=== PATIENT | female | born 1930 | race Caucasian/White ===

== ENCOUNTER 2017-05-18 10:16 | Outpatient (CLI) | payer MEDICARE ==
--- NOTE | 2017-05-18 16:18 | MRI ---
MRI BRAIN WITHOUT CONTRAST: Technique: Multiplanar, multisequential imaging of brain obtained. History: Memory loss, confusion. FINDINGS: Mild cortical volume loss. Moderate chronic ischemic white matter changes seen in both cerebral hemis pheres. No evidence of restricted diffusion. No evidence of mass or edema. The intracranial internal carotid arteries and possible cerebral arteries show flow voids. Basilar artery is patent. Paranasal sinuses appear clear. IMPRESSION: 1. Mild to severe chronic ischemic white matter change and mild to moderate cortical atrophy. No evid ence of acute process. POS: [facility]
== END 2017-05-18 10:17 | disposition home or self-care (01) ==
LOC: SCSMRI 10:16
PROVIDERS: ATTEND Family Medicine
DX: R41.3 Other amnesia (principal); I67.82 Cerebral ischemia; G31.9 Degenerative disease of nervous system, unspecified
CPT/HCPCS: 70551

== ENCOUNTER 2017-08-11 09:46 | Outpatient (CLI) | payer MEDICARE, OTHER ==
--- NOTE | 2017-08-13 10:35 | EEG ---
Referring Physician: DR AMADOR BERTRAND EEG # [id number] TEST TYPE: ROUTINE OUTPATIENT PROCEDURE: Outpatient electroencephalogram NAME OF PATIENT: Ailyn Wan DATE EEG DONE: 08/11/2017. INDICATION: Memory impairment, falls. EEG CLASSIFICATION: Normal awake and drowsy. REPORT: This is a 22-channel digital EEG recording utilizing 10-20 international electrode placement system on a patient who presents with memory impairment and frequent falls. During wakefulness, the background activity consists predominantly of low to moderate amplitude 8 Hz rhythm. It is symmetric and reactive. This activity is penetrated occasionally by low amplitude fast beta activity and also with myogenic activity representing frontalis and temporalis muscles bilaterally. DROWSINESS AND SLEEP: Subject is able to attain periods of drowsiness with diffuse theta activity. There is no clear sleep recorded during this EEG. There is no consistent asymmetry or paroxysmal activity noted. INDUCTION: HYPERVENTILATION: Not performed. PHOTIC STIMULATION: No photic drive seen. EK per minute. IMPRESSION: This EEG is considered normal awake and drowsy EEG. There is no clear epileptiform activity or focal abnormality noted. Clinical correlation recommended. Finger Waver: PHIL Roadway Engineer: [email or web address]
== END 2017-08-11 09:47 | disposition home or self-care (01) ==
LOC: EEG 09:46
PROVIDERS: ATTEND Student in an Organized Health Care Education/Training Program
DX: R41.3 Other amnesia (principal)
CPT/HCPCS: 95816

== ENCOUNTER 2017-08-18 02:06 | Emergency (ER) | payer MEDICARE, OTHER ==
[2017-08-18] MEDS ORDERED: hydrALAZINE 20 MG/ML VIAL ONE (02:45)
[2017-08-18 03:02] LABS: #Basophils 0.1 thou/uL (0.0-0.2); #Eosinphils 0.1 thou/uL (0.0-0.7); #Monocytes 0.3 thou/uL (0.11-0.59); #Neutrophils 2.6 thou/uL (1.40-6.50); %Basophils 1.1 % (0.0-1.0); %Eosinophils 2.2 % (0.0-10.0); %Monocytes 6.5 % (0.0-10.0); %Neutrophils 51.2 % (42.0-75.0); Hemoglobin 14.7 g/dL (12.0-16.0); Mean Corpuscular HGB CONC 33.1 g/dL (32.0-36.0); Mean Corpuscular Hemoglobin 30.4 pg (27.0-31.0); Mean Corpuscular Volume 91.9 fl (81.0-99.0); Mean Platelet Volume 8.7 fL (7.4-10.4); Platelet Count 123 thou/uL (130-400); Red Blood Cell (RBC) Count 4.84 mill/uL (4.20-5.40); White Blood Cell (WBC) Count 5.1 thou/uL (4.8-10.8)
[2017-08-18 03:21] LABS: ALT (SGPT) 26 U/L (8-55); AST (SGOT) 35 U/L (5-34); Albumin 4.8 g/dL (3.4-4.8); Alkaline Phosphatase 82 U/L (40-150); Anion Gap 14 mmol/L (10-20); BUN (Urea Nitrogen) 31 mg/dL (9.8-20.1); Bilirubin, Total 0.6 mg/dL (0.2-1.2); CK (CPK) 206 U/L (29-168); Calc. Creatinine Clearance 0 mL/min (70-130); Carbon Dioxide 28 mmol/L (23-31); Chloride 102 mmol/L (98-107); Estimated GFR-MDRD 38; Globulin 3.5 g/dL (2.4-3.5); Glucose 90 mg/dL (83-110); Potassium 3.4 mmol/L (3.5-5.1); Protein, Total 8.3 g/dL (6.0-8.3); Sodium 141 mmol/L (136-145)
[2017-08-18 03:25] LABS: Calcium 12.2 mg/dL (7.8-10.44)
[2017-08-18 03:26] LABS: Troponin I 0.015 ng/mL (< 0.028)
[2017-08-18 03:31] LABS: CKMB 8.6 ng/mL (0-6.6)
[2017-08-18] MEDS ORDERED: Labetalol HCl 100 MG/20 ML VIAL ONE (04:03)
--- NOTE | 2017-08-18 07:50 | RAD ---
PORTABLE CHEST 1 VIEW: DATE: 08/18/17. TIME: 2:59 a.m. HISTORY: Shortness of breath, chest pain. FINDINGS: The heart size is normal. The lungs are expanded without focal areas of consolidation, pneumothorax, or pleural effusions. IMPRESSION: No acute process. POS: [facility]
--- NOTE | 2017-08-22 15:44 | EKG ---
Test Reason : Blood Pressure : / mmHG Vent. Rate : 058 BPM Atrial Rate : 058 BPM P-R Int : 136 ms QRS Dur : 090 ms QT Int : 434 ms P-R-T Axes : 039 -15 030 degrees QTc Int : 426 ms Sinus bradycardia Minimal voltage criteria for LVH, may be normal variant Borderline ECG Confirmed by KOFI RICO D.O. ([id number]), editor publications LUIS MIGUEL GARAY ([id number]) on 08/22/2017 3:44:07 PM Referred By: Confirmed By:KOFI RICO D.O.
== END 2017-08-18 05:40 | disposition home or self-care (01) ==
LOC: ERS 02:06
DX: F41.9 Anxiety disorder, unspecified (principal); I16.0 Hypertensive urgency; I10 Essential (primary) hypertension; E83.52 Hypercalcemia; F32.9 Major depressive disorder, single episode, unspecified; Z79.899 Other long term (current) drug therapy; Z79.82 Long term (current) use of aspirin
CPT/HCPCS: 71045; 80053; 82553; 83880; 84443; 84484; 85025; 93005; 96361; 96374; 96375; J0360

== ENCOUNTER 2018-09-04 14:47 | Observation (INO) | payer MEDICARE, OTHER ==
--- NOTE | 2018-09-04 16:02 | CT ---
CT BRAIN 09/04/18 HISTORY: Headache. Slurred speech. Noncontrast enhanced CT images of the brain obtained. There is cortical atrophy and deep white matter ischemic changes. 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 These likel y are old. No evidence of acute intracranial masses or hemorrhages or strokes seen. IMPRESSION: 1. Cortical atrophy and deep white matter ischemic changes. 2. No evidence of acute intracranial pathology seen. No evidence subarachnoid or subdural blood seen. POS: [facility]
--- NOTE | 2018-09-04 16:05 | CT ---
CT CERVICAL SPINE 09/04/18 HISTORY: Trauma. Disorientation. Headache. Balance difficulties. Axial images are obtained with coronal and sagittal reconstructions. CT images demonstrate no evidence of acute cervical spine fractures. Disc space height loss with ante rior and posterior osteophytes seen at C3-4, C4-5, C5-6, and C6-7. This is compatible with changes of spondylosis. There is grade I anterolisthesis of C7 on T1. This measures approximately 2.3 mm. Atherosclerotic calcifications seen in the carotid bulbs bilaterally. IMPRESSION: Multilevel changes of spondylosis in the cervical spine. No evidence of acute cervical spine fracture seen. POS: [facility]
--- NOTE | 2018-09-04 16:07 | RAD ---
AP VIEW CHEST: 09/04/18 HISTORY: Headache. Slurred speech. Trauma. AP view chest is obtained on 09/04/18. Comparison made to previous exam from 08/18/17. AP view chest demonstrates the lungs to be well aerated. No evidence of active intrathoracic disease seen. No evidence of effusions, pneumonia or pneumothorax seen. IMPRESSION: Unremarkable AP view chest. POS: [facility]
[2018-09-04 16:29] LABS: #Basophils 0.1 thou/uL (0.0-0.2); #Eosinphils 0.1 thou/uL (0.0-0.7); #Lymphocytes 1.4 thou/uL (1.20-3.40); #Monocytes 0.5 thou/uL (0.11-0.59); #Neutrophils 3.1 thou/uL (1.40-6.50); %Basophils 1.5 % (0.0-1.0); %Eosinophils 2.1 % (0.0-10.0); %Lymphocytes 27.1 % (21.0-51.0); %Monocytes 9.9 % (0.0-10.0); %Neutrophils 59.4 % (42.0-75.0); Hemoglobin 12.8 g/dL (12.0-16.0); Mean Corpuscular HGB CONC 32.6 g/dL (32.0-36.0); Mean Corpuscular Hemoglobin 29.5 pg (27.0-31.0); Mean Corpuscular Volume 90.5 fL (78.0-98.0); Mean Platelet Volume 8.2 fL (7.4-10.4); Platelet Count 128 thou/uL (130-400); RBC Distribution Width 12.9 % (11.5-14.5); Red Blood Cell (RBC) Count 4.34 mill/uL (4.20-5.40); White Blood Cell (WBC) Count 5.2 thou/uL (4.8-10.8)
[2018-09-04 17:03] LABS: ALT (SGPT) 16 U/L (8-55); AST (SGOT) 19 U/L (5-34); Albumin 3.7 g/dL (3.4-4.8); Alkaline Phosphatase 72 U/L (40-150); Anion Gap 13 mmol/L (10-20); BUN (Urea Nitrogen) 30 mg/dL (9.8-20.1); Bilirubin, Total 0.3 mg/dL (0.2-1.2); CK (CPK) 93 U/L (29-168); Calc. Creatinine Clearance 0 mL/min (70-130); Carbon Dioxide 27 mmol/L (23-31); Chloride 106 mmol/L (98-107); Estimated GFR-MDRD 35; Globulin 3.1 g/dL (2.4-3.5); Glucose 117 mg/dL (83-110); Potassium 3.9 mmol/L (3.5-5.1); Protein, Total 6.8 g/dL (6.0-8.3); Sodium 142 mmol/L (136-145)
[2018-09-04 18:00] LABS: Bilirubin Negative (Negative); Blood, Urine Trace (Negative); Clarity Clear (Clear); Glucose, Urine (Dipstick) Negative (Negative); Leukocyte Negative (Negative); Nitrite Negative (Negative); Protein, Urine (Dipstick) Trace mg/dL (Neg-Trace); Specific Gravity, Urine 1.015 (1.005-1.030); Urobilinogen 0.2 mg/dL (0.2-1.0)
[2018-09-04 18:06] LABS: Bacteria/HPF None Seen HPF (None Seen); RBC/HPF 0-3 HPF (0-3); Squamous Epithelial 0-3 HPF (0-3); Transitional Epithelial 0-3 HPF (0-3); WBC/HPF 0-3 HPF (0-3)
[2018-09-04] MEDS ORDERED: hydrALAZINE 20 MG/ML VIAL ONE ×3 (18:14→19:25)
[2018-09-04] MEDS ORDERED: Acetaminophen 500 MG TAB ONE (19:01)
[2018-09-04] MEDS ORDERED: Metoprolol Tartrate 50 MG TAB ONE (19:53)
[2018-09-04 20:36] LABS: Troponin I 0.017 ng/mL (< 0.028)
[2018-09-04] MEDS ORDERED: Ondansetron ODT 4 MG TAB SL PRN (22:32)
[2018-09-04] MEDS ORDERED: Ondansetron PF 4 MG/2 ML Vial IVP PRN (22:32)
[2018-09-04] MEDS ORDERED: Acetaminophen 325 MG TAB PO PRN (22:32)
[2018-09-04] MEDS ORDERED: cloNIDine 0.2 MG TAB PO PRN (23:14)
[2018-09-04] MEDS ORDERED: Amlodipine 5 MG TAB PO SCH (23:15)
[2018-09-04] MEDS ORDERED: Lisinopril 20 MG TAB PO SCH (23:15)
[2018-09-04 23:34] LABS: Troponin I 0.012 ng/mL (< 0.028)
[2018-09-05 00:06] VITALS: BMI 21.5
[2018-09-05] MEDS ORDERED: Levothyroxine Sodium 75 MCG TAB PO SCH (06:00)
[2018-09-05] MEDS ORDERED: Hydrochlorothiazide 25 MG TAB PO SCH (09:00)
[2018-09-05] MEDS ORDERED: Metoprolol Tartrate 50 MG TAB PO SCH (09:00)
[2018-09-05] MEDS ORDERED: Amlodipine 5 MG TAB PO SCH (09:00)
[2018-09-05] MEDS ORDERED: Lisinopril 20 MG TAB PO SCH (09:00)
[2018-09-05] MEDS ORDERED: Acetaminophen 325 MG TAB PO PRN (11:47)
[2018-09-05 11:57] VITALS: BP 171/71; TEMP 97.6
--- NOTE | 2018-09-05 12:38 | HP ---
CHIEF COMPLAINT: Headache, gait imbalance, and hypertensive urgency. HISTORY OF PRESENT ILLNESS: This is an 88-year-old female, patient of Dr. Luis Felipe Sharif, who presented to the ER by family after noticing increasing disorientation and headache with gait imbalance including stumbles and falls over the previous 3 days. They brought her to the ER for unsure, they were worried she might be having a TIA or stroke. In the ER, BP was found to be 218/96. Multiple attempts were made to control the BP and finally came down at best the point of 142/77, but then came back up again to 200/84 and further medications were given definitively get it down to 162/79. PAST MEDICAL HISTORY: Includes dementia and hypertension. She is very poor historian and no other family is present at the time, but by her medicine list, she has some depression and some hypothyroidism. PAST SURGICAL HISTORY: Tonsillectomy. Other past history is unavailable. SOCIAL HISTORY: She is and lives with her . No toxic habits. For her age and dementia, they do have help private paid caregivers who have been helping them and recently her long-term caregiver has left and in the process of trying to find another. Throughout this time, I asked the patient if it is possible she had missed several days of her blood pressure medicine and she agreed with the changing of her private caregiver that is very possible. REVIEW OF SYSTEMS: She denies any fever or body aches or global weakness. She does report a headache, but no visual changes. No trouble chewing or swallowing. She denies any drooling. Denies any dysphonia, dysarthria, or dysphagia. She denies any chest pain, shortness of breath, nausea, vomiting, changes to bowel or bladder habits. She denies any rashes. She denies any focal weakness, paresthesias, or paresis. She denies any auditory or visual hallucinations. She denies any homicidal or suicidal ideations. ALLERGIES: NO KNOWN DRUG ALLERGIES. HOME MEDICATIONS: Include; 1. Metoprolol 25 mg daily. 2. Aricept 5 mg daily. 3. Synthroid 75 mcg daily. 4. Hydrochlorothiazide 12.5 mg daily. PHYSICAL EXAMINATION: GENERAL: On exam, she is awake and alert and pleasant. VITAL SIGNS: BP in the ER before coming up to the room was 162/79, pulse 61, respiration rate at 18, and O2 saturation 98% on room air. HEENT : Normocephalic and atraumatic cranium. Pupils are equal, round, and reactive to light and accommodation. Extraocular movements are intact. Mucous membranes are moist. Sclerae are anicteric. Mucosa is pink and moist. NECK: Supple. No JVD. No bruits. No thyromegaly. CHEST: Clear to auscultation bilaterally. No rales, rhonchi, or wheezes. HEART: S1 and S2. No rubs, murmurs, or gallops. No palpable costochondral tenderness. ABDOMEN: Soft, flat, nontender, and nondistended. Bowel sounds throughout. No masses. No hepatosplenomegaly. GENITOURINARY: Deferred. EXTREMITIES: Showed good palpable pulses in all 4 extremities. No cyanosis, clubbing, or edema. She is moving all extremities. No motor or sensory deficits appreciated. NEUROLOGIC: She is grossly intact, although she admits to having some dementia. Her memory is not as good as it used to be. She does know the year. She is not sure of the date. She does realize she is in the hospital. IMAGING AND LABORATORY DATA: EKG shows no specific ST-T wave abnormalities. There is normal sinus rhythm at 72. Head CT was done and showed no acute processes, some chronic ischemic changes. A neck C-spine was done due to recent fall, which showed no acute pathology. Chest x-ray was essentially normal. Her lab work showed a white count of 5.2, hemoglobin 12.8, hematocrit 39.2, and platelets at 128,000. Chemistry shows sodium 142, potassium 3.9, chloride 106, bicarb 27, BUN is 30, creatinine 1.4, glucose 117 with a filtration rate of 35, calcium is at 11, AST and ALT are 19 and 16 respectively. Troponins 0.01 and BNP is 58. Urine is unremarkable. ASSESSMENT AND PLAN: Hypertensive urgency with dementia. Possibility of caregiver changes resulting in inconsistent medication administration, being held overnight for observation. Job ID: [id number]
--- NOTE | 2018-09-05 13:23 | DIS ---
DATE OF ADMISSION: 09/04/2018 DATE OF DISCHARGE: 09/05/2018 ADMIT DIAGNOSES: Hypertensive urgency with dementia. DISCHARGE DIAGNOSES: Hypertensive urgency with dementia, possibility of inconsistent medication administration due to dementia. HOSPITAL COURSE: The patient is an 88-year-old female, patient of Dr. Luis Felipe Sharif, who was brought to the emergency room due to complaints of headache and dizziness with some gait instability. Eval in the emergency room showed no acute pathologies from the brain or C-spine or chest by imaging and lab. There is no infection on exam. Neurologically, she has cranial nerves grossly intact. She has some mild dementia, but there is no evidence of a tumor or vascular etiology for her dizziness. Currently, she only complained of a mild headache. When asked about her medicines and how she gets her medicines, she states her paid caregiver that she has had for a long time has been very good for her has recently moved and they have been trying to find another 1, so she admits that it is possible she has not received all of her blood pressure medicines consistently as she is supposed to, but they are in the process of getting her another caregiver. Today in the hospital, after restarting her home medications plus adding a couple more, her BP has been 145/63, then 172/76 and this morning is 135/70 with a pulse of 57 and she feels fine other than a mild headache this morning. Her history ability is not the greatest and when asked about having the possibility of history of allergies, she is unsure, but she says it is possible she just does remember. So the assessment is hypertensive urgency with known hypertensive disease with inconsistent medications administration. Also history of dementia and hypothyroidism and mild depression. The plan is the discharge to home to follow up with Dr. Sharif in 2 to 5 days. Follow up on her blood pressure. Will return on her home medications, which were sertraline 25 mg daily, Synthroid 75 mcg daily, Aricept 5 mg daily, and for blood pressure, she had been on hydrochlorothiazide 12.5 mg daily and she was on metoprolol, but I have increased it to 50 mg twice a day. I have also added lisinopril 20 mg daily and amlodipine 5 mg daily. The metoprolol, lisinopril, and amlodipine will be sent to her pharmacy to be picked up today. Job ID: [id number]
[2018-09-05] MEDS ORDERED: Donepezil HCl 5 MG TAB PO SCH (21:00)
== END 2018-09-05 14:00 | disposition home or self-care (01) ==
LOC: SCSER 14:47 → 2SW 19:49
PROVIDERS: ADMIT Family Medicine; ATTEND Family Medicine
DX: I16.0 Hypertensive urgency (principal); F03.90 Unspecified dementia, unspecified severity, without behavioral disturbance, psychotic disturbance, mood disturbance, and anxiety; F32.9 Major depressive disorder, single episode, unspecified; E03.9 Hypothyroidism, unspecified; M47.812 Spondylosis without myelopathy or radiculopathy, cervical region; Z90.89 Acquired absence of other organs; Z79.899 Other long term (current) drug therapy
CPT/HCPCS: 51701; 70450; 71045; 72125; 80053; 82550; 83605; 83880; 84484 ×2; 85025; 87086; 93005; 96361; 96374; 96376; 99285; G0378 ×2; 36415; 81003; 81015; A4353; J0360

== ENCOUNTER 2018-09-06 11:31 | Emergency (ER) | payer MEDICARE, OTHER ==
--- NOTE | 2018-09-06 12:25 | RAD ---
LEFT HIP 2 VIEWS: Date: 09/06/18 HISTORY: Left hip pain following a fall, and injury landing on buttocks. FINDINGS/IMPRESSION: Degenerative changes left hip joint, as well as some sclerosis in the symphysis pubis. No acute fract ure or dislocation. Mild bony demineralization. POS: [facility]
--- NOTE | 2018-09-06 12:26 | RAD ---
PELVIS 1 VIEW: Date: 09/06/18 HISTORY: Injury following a fall on to buttocks. FINDINGS: There are some degenerative changes of both SI joints and both hip joints. Minimal sclerosis of the s ymphysis pubis. IMPRESSION: No fracture, dislocation, or other significant acute osseous abnormality. POS: [facility]
== END 2018-09-06 17:44 ==
LOC: ERS 11:31
DX: M54.5 Low back pain (principal); M25.552 Pain in left hip; R29.6 Repeated falls; I10 Essential (primary) hypertension; F32.9 Major depressive disorder, single episode, unspecified; F41.9 Anxiety disorder, unspecified; Z79.899 Other long term (current) drug therapy; W01.0XXA Fall on same level from slipping, tripping and stumbling without subsequent striking against object, initial encounter
CPT/HCPCS: 72170

== ENCOUNTER 2018-11-24 16:16 | Emergency (ER) | payer MEDICARE, OTHER ==
[2018-11-24 16:45] LABS: #Monocytes 0.9 thou/uL (0.11-0.59); #Neutrophils 7.1 thou/uL (1.40-6.50); %Basophils 0.1 % (0.0-1.0); %Eosinophils 0.3 % (0.0-10.0); %Lymphocytes 11.1 % (21.0-51.0); %Monocytes 9.8 % (0.0-10.0); %Neutrophils 78.6 % (42.0-75.0); Hemoglobin 12.7 g/dL (12.0-16.0); Mean Corpuscular HGB CONC 33.6 g/dL (32.0-36.0); Mean Corpuscular Hemoglobin 30.3 pg (27.0-31.0); Mean Corpuscular Volume 90.3 fL (78.0-98.0); Mean Platelet Volume 8.4 fL (7.4-10.4); Platelet Count 132 thou/uL (130-400); RBC Distribution Width 12.1 % (11.5-14.5); Red Blood Cell (RBC) Count 4.21 mill/uL (4.20-5.40); White Blood Cell (WBC) Count 9.1 thou/uL (4.8-10.8)
--- NOTE | 2018-11-24 17:01 | CT ---
CT brain. Carlos history: Altered mental status. Comparison made to previous exam from 09/04/2018. Noncontrast enhanced CT images of the brain demonstrate diffuse cortical atrophy and deep white matte r ischemic changes. No evidence of acute intracranial abnormality seen. IMPRESSION: cortical atrophy and deep white matter ischemic changes.
[2018-11-24 17:02] LABS: Bilirubin Negative (Negative); Blood, Urine Moderate (Negative); Clarity TURBID (Clear); Glucose, Urine (Dipstick) Negative (Negative); Leukocyte Large (Negative); Nitrite Positive (Negative); Protein, Urine (Dipstick) 100 mg/dL (Neg-Trace); Specific Gravity, Urine 1.014 (1.002-1.036); Urobilinogen 0.2 mg/dL (0.2-1.0); pH, Urine 5.5 (5.0-9.0)
[2018-11-24 17:05] LABS: Bacteria/HPF 3+ HPF (None Seen); Hyaline Casts/LPF 0-3 HYALINE CAST LPF (0-3 Hyaline); Pathc Cast-AUWi Flag 0.81 (0-2.49); Squamous Epithelial None Seen HPF (0-3)
--- NOTE | 2018-11-24 17:05 | CT ---
Noncontrast enhanced CT images cervical spine. HISTORY: Fall with neck pain and disorientation. Axial images are obtained with coronal and sagittal reconstruction images. Comparison made to previous exam from 09/04/2018. CT appearance demonstrates multilevel changes of spondylosis with disc space height loss, anterior an d posterior osteophytes and multilevel neural foraminal narrowing. No evidence of acute cervical spine fractures seen. Bilateral carotid bulb vascular calcifications seen. IMPRESSION: Multilevel cervical changes of spondylosis with no acute fracture seen.
[2018-11-24 17:11] LABS: ALT (SGPT) 19 U/L (8-55); AST (SGOT) 20 U/L (5-34); Albumin 4.1 g/dL (3.4-4.8); Alkaline Phosphatase 66 U/L (40-150); Anion Gap 16 mmol/L (10-20); BUN (Urea Nitrogen) 34 mg/dL (9.8-20.1); Bilirubin, Total 0.8 mg/dL (0.2-1.2); CK (CPK) 119 U/L (29-168); Calc. Creatinine Clearance 0 mL/min (70-130); Calcium 11.1 mg/dL (7.8-10.44); Carbon Dioxide 25 mmol/L (23-31); Chloride 100 mmol/L (98-107); Estimated GFR-MDRD 31; Globulin 3.7 g/dL (2.4-3.5); Glucose 95 mg/dL (83-110); Potassium 3.5 mmol/L (3.5-5.1); Protein, Total 7.8 g/dL (6.0-8.3); Sodium 137 mmol/L (136-145)
--- NOTE | 2018-11-24 17:11 | RAD ---
EXAM: CHEST ONE VIEW HISTORY: Altered mental status. Patient fell this morning. COMPARISON: 09/04/2018 FINDINGS: Cardiac silhouette is magnified by projection. Pulmonary vasculature is within normal limits. Minimal linear densities are seen in the lateral right upper lung zone and at the left lung base likely related to atelectasis. The lungs otherwise appear clear. Vascular calcifications are seen in a mildl y ectatic thoracic aorta. Mild degenerative changes are present in the spine. 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 IMPRESSION: No acute cardiopulmonary process.
[2018-11-24] MEDS ORDERED: cefTRIAXone\\ROCEPHIN 1 GM VIAL ONE (17:33)
== END 2018-11-24 18:49 | disposition home or self-care (01) ==
LOC: ERS 16:16
DX: N39.0 Urinary tract infection, site not specified (principal); I10 Essential (primary) hypertension; F41.9 Anxiety disorder, unspecified; F32.9 Major depressive disorder, single episode, unspecified; Z79.899 Other long term (current) drug therapy; Z79.82 Long term (current) use of aspirin
CPT/HCPCS: 36415; 70450; 71045; 72125; 80053; 81003; 81015; 82550; 84484; 85025; 93005; 96365; J0696